=== PATIENT | male | born 1985 | race Caucasian/White ===

== ENCOUNTER 2018-11-12 20:12 | Emergency (ER) | payer MEDICAID ==
[~2018-11-12 20:12] MED LIST: Iopamidol 370 76% 100 ML VIAL ONE
--- NOTE | 2018-11-12 20:48 | RAD ---
CHEST ONE VIEW: 11/12/18 HISTORY: Cough and wheezing. COMPARISON: 10/24/16. FINDINGS: The cardiac silhouette is magnified by projection. Pulmonary vasculature is upper limits of normal. M ild central interstitial prominence. No lobar consolidation or evidence of pneumothorax. IMPRESSION: Central interstitial prominence is nonspecific and may be related to an atypical inflammatory process . No lobar pneumonia is evident. POS: [facility]
[2018-11-12 21:05] LABS: ALT (SGPT) 40 U/L (8-55); AST (SGOT) 28 U/L (5-34); Albumin 4.4 g/dL (3.5-5.0); Alkaline Phosphatase 106 U/L (40-150); Anion Gap 15 mmol/L (10-20); BUN (Urea Nitrogen) 12 mg/dL (8.9-20.6); Bilirubin, Total 1.2 mg/dL (0.2-1.2); CK (CPK) 132 U/L (30-200); Calc. Creatinine Clearance 0 mL/min (70-130); Calcium 9.7 mg/dL (7.8-10.44); Carbon Dioxide 24 mmol/L (22-29); Chloride 104 mmol/L (98-107); Estimated GFR-MDRD 70; Globulin 3.8 g/dL (2.4-3.5); Glucose 100 mg/dL (70-105); Protein, Total 8.2 g/dL (6.0-8.3); Sodium 139 mmol/L (136-145)
[2018-11-12] MEDS ORDERED: cefTRIAXone\\ROCEPHIN 2 GM VIAL ONE (21:13)
[2018-11-12] MEDS ORDERED: Azithromycin 500 MG VIAL ONE ×2 (21:13→21:16)
[2018-11-12] MEDS ORDERED: methylPREDNISolone Sod Succ/PF 125 MG/2 ML VIAL ONE (21:14)
[2018-11-12 21:20] LABS: Band 3 % (5-11); Hemoglobin 15.4 g/dL (14.0-18.0); Lymphocytes 19 % (21-51); MDiff Complete? YES; Mean Corpuscular HGB CONC 32.7 g/dL (32.0-36.0); Mean Corpuscular Hemoglobin 28.1 pg (27.0-31.0); Mean Platelet Volume 14.9 fL (7.4-10.4); Monocytes 5 % (0-10); Neutrophil 73 % (42-75); Platelet Count 76 thou/uL (130-400); Platelet Morphology Comment Appears Decreased; RBC Distribution Width 12.7 % (11.5-14.5); Red Blood Cell (RBC) Count 5.48 mill/uL (4.70-6.10); White Blood Cell (WBC) Count 8.7 thou/uL (4.8-10.8)
--- NOTE | 2018-11-12 22:39 | CT ---
CT CHEST WITH IV CONTRAST: 11/12/18 HISTORY: Cough and wheezing. FINDINGS: Subtle ill-defined air space opacity is present within the right lower lobe. No other lobar consolida tion, pleural fluid or pneumothorax. Reactive appearing lymph nodes are the right hilum. IMPRESSION: Subtle right lower lobe infiltrate. Clinical correlation regarding other signs and symptoms of right lower lobe pneumonitis is required. Please consider radiographic followup after medical treatment to evaluate for clearing. POS: [facility]
[2018-11-12] MEDS ORDERED: Sodium Chloride 0.9% 250 ML 250 ML ONE (23:12)
[2018-11-12] MEDS ORDERED: Sodium Chloride 0.9% 100 ML ONE (23:12)
[2018-11-12] MEDS ORDERED: Sodium Chloride 0.9% 1,000 ML ONE (23:12)
== END 2018-11-13 00:30 | disposition short-term general hospital (02) ==
LOC: MADERS 20:12
DX: J18.1 Lobar pneumonia, unspecified organism (principal); D69.6 Thrombocytopenia, unspecified; F17.210 Nicotine dependence, cigarettes, uncomplicated
CPT/HCPCS: 36415; 71045; 71260; 80053; 82550; 83880; 84484; 85025; 87040; 87804; 93005; 94640; 94760; 96361; 96365; 96367; 96375; J0456; J0696; J2930; J7050; J7620; Q9967